=== PATIENT | male | born 1955 | race American Indian/Alaskan Native ===

== ENCOUNTER 2016-12-21 07:54 | Emergency (ER) | payer MEDICARE, OTHER ==
[2016-12-21 08:03] VITALS: TEMP 97.6
--- NOTE | 2016-12-21 08:35 | C.PDOC ---
History Of Present Illness 61 yo male, no PMHx, presents with low back and buttocks pain x 7-8 days. States that it feels achy and radiates down his legs. Worse when he sits for too long or extends his legs. No numbness or tingling. No weakness. He is walking at baseline. Walks with a cane secondary a back injury in 2013. No new injuries. No urinary complaints. No incontinence. No saddle anesthesia. PMD: Dr. Bueno Time Seen by Provider: 12/21/16 08:13 Chief Complaint (Nursing): Back Pain History Per: Patient, Family () History/Exam Limitations: no limitations Past Medical History Vital Signs: Last Vital Signs Temp 97.6 F 12/21/16 08:03 Pulse 68 12/21/16 08:03 Resp 20 12/21/16 08:03 BP 128/76 12/21/16 08:03 Pulse Ox 95 12/21/16 08:03 - Medical History PMH: Arthritis, HTN, Hyperlipidemia - [facility] Procedures CLOSURE SKIN & SUBCUTANEOUS NEC (12/16/12) Family History: States: Unknown Family Hx - Social History Hx Tobacco Use: No Hx Alcohol Use: No Hx Substance Use: No - Immunization History Hx Tetanus Toxoid Vaccination: No Hx Influenza Vaccination: No Hx Pneumococcal Vaccination: No Review Of Systems Except As Marked, All Systems Reviewed And Found Negative. Genitourinary: Negative for: Dysuria, Frequency, Hematuria Musculoskeletal: Positive for: Back Pain (and buttocks pain). Negative for: Neck Pain Physical Exam - Physical Exam Appears: Well Skin: Normal Color, Warm, Dry Eye(s): bilateral: Normal Inspection, PERRL, EOMI Nose: Normal Throat: Normal Neck: Normal Cardiovascular: Rhythm Regular Respiratory: Normal Breath Sounds Gastrointestinal/Abdominal: Normal Exam Back: Normal Inspection, No CVA Tenderness, Muscle Spasm (tenderness to sciatic nerve bilaterally), Straight Leg Raising (pain with extension to 90 degrees of legs b/l) Extremity: Normal ROM Neurological/Psych: Oriented x3, Normal Motor, Normal Sensation Gait: Steady ED Course And Treatment O2 Sat by Pulse Oximetry: 95 Medical Decision Making Medical Decision Makin yo male with buttocks pain r/o sciatica -- Toradol, Flexeril -- Explained to patient methods of safe stretching and application of warm packs. I explained the use of motrin and flexeril and he will f/u with his pmd. Disposition Counseled Patient/Family Regarding: Diagnosis, Need For Followup - Disposition Referrals: Galindo Bueno Jr., MD [Medical Doctor] - Disposition: HOME/ ROUTINE Disposition Time: 08:38 Condition: IMPROVED Additional Instructions: Ms Arboleda, thank you for letting us take care of you today. Your provider was Dr. Terry. You were treated for Sciatica. The emergency medical care you received today was directed at your acute symptoms. If you were prescribed any medication, please fill it and take as directed. It may take several days for your symptoms to resolve. Return to the Emergency Department if your symptoms worsen, do not improve, or if you have any other problems. Please contact your doctor or call one of the physicians/clinics you have been referred to that are listed on the Patient Visit Information form that is included in your discharge packet. Bring any paperwork you were given at discharge with you along with any medications you are taking to your follow up visit. Our treatment cannot replace ongoing medical care by a primary care provider (PCP) outside of the emergency department. Thank you for allowing the [facility] team to be part of your care today. If you had an X-Ray or CT scan: A Radiologist will review the ED reading if any change in treatment is needed we will contact you. If you had a blood, urine, or wound culture: It will take several days for the results, if any change in treatment is needed we will contact you. If you had an STI test: It will take 48 hours for the results. Please call after 1 week if you have not heard back. Prescriptions: Cyclobenzaprine [Flexeril] 5 mg PO Q8 PRN #20 tab PRN Reason: Muscle Spasm Naproxen 500 mg PO BID PRN #30 tab PRN Reason: Pain, Moderate (4-7) Instructions: Sciatica (ED) Forms: General Discharge Instructions - POA Present On Arrival: None - Clinical Impression Clinical Impression: Sciatica
[2016-12-21 08:53] VITALS: BP 125/73; PULSE 71; RESP 18; O2SAT 96
== END 2016-12-21 08:53 | disposition home or self-care (01) ==
LOC: C.ER 07:54
DX: M54.32 Sciatica, left side (principal); M54.31 Sciatica, right side
CPT/HCPCS: 96372; 99283; J1885

== ENCOUNTER 2018-04-18 10:53 | Emergency (ER) | payer OTHER ==
[2018-04-18 11:18] VITALS: BP 158/80; PULSE 79; RESP 20; TEMP 98.4; O2SAT 97
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
== END 2018-04-18 12:24 | disposition home or self-care (01) ==
LOC: C.ER 10:53
DX: S23.3XXA Sprain of ligaments of thoracic spine, initial encounter (principal); S39.012A Strain of muscle, fascia and tendon of lower back, initial encounter; V49.9XXA Car occupant (driver) (passenger) injured in unspecified traffic accident, initial encounter; I10 Essential (primary) hypertension; E78.5 Hyperlipidemia, unspecified